=== PATIENT | male | born 1960 | race Caucasian/White ===

== ENCOUNTER 2022-02-05 14:57 | Emergency (ER) | payer BC ==
[2022-02-05] MEDS ORDERED: Ondansetron 4 MG Tab.DIS PO ONE (16:10)
[2022-02-05 16:32] LABS: ESTIMATED GFR 77 mL/min (>60)
[2022-02-05 17:04] LABS: CORONAVIRUS COVID-19 NAA NEGATIVE (NEGATIVE)
== END 2022-02-05 17:09 | disposition left against medical advice (07) ==
LOC: JD.ED 14:57
DX: R11.2 Nausea with vomiting, unspecified (principal); R50.9 Fever, unspecified; R05.9 Cough, unspecified; I10 Essential (primary) hypertension; Z72.0 Tobacco use; Z88.5 Allergy status to narcotic agent; Z79.899 Other long term (current) drug therapy; Z20.822 Contact with and (suspected) exposure to COVID-19
CPT/HCPCS: 0240U; 36415; 71045; 80053; 83735; 85025; 86140; 99284; A9270